=== PATIENT | male | born 2000 | race African-American/Black ===

== ENCOUNTER 2023-11-25 23:51 | Emergency (ER) | payer OTHER ==
[2023-11-26] MEDS ORDERED: KETOROLAC 30 MG/ML INJ ONE (00:21)
[2023-11-26] MEDS ORDERED: NA CHLORIDE 0.9% 1,000 ML ONE (00:21)
[2023-11-26 00:28] LABS: Absolute Lymphocytes (CBC) 0.9 K/uL (0.7-4.9); Hematocrit 42.1 % (39.6-49.0); Lymphocytes % 5.3 % (15.3-44.8); MCV 88.7 fL (80-100); MPV 10.5 fL (7.6-11.3); Platelets 253 thou/uL (152-406); RBC Red Blood Cell Count 4.75 M/uL (4.33-5.43)
[2023-11-26 00:47] LABS: Potassium 3.7 mEq/L (3.5-5.1)
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
[2023-11-26] MEDS ORDERED: CEFTRIAXONE 1000 MG/VIAL ONE (02:34)
[2023-11-26] MEDS ORDERED: AZITHROMYCIN 250 MG TAB ONE (02:34)
[2023-11-26] MEDS ORDERED: HYDROCODONE/APAP 7.5/325 MG TAB ONE (02:35)
[2023-11-26 03:28] VITALS: BP 139/72; TEMP 97.9; O2SAT 99
--- NOTE | 2023-11-26 18:45 | RAD REPORT ---
EXAM DESCRIPTION: EXAM: Hand Right 3 View CLINICAL HISTORY: 23-year-old male with pain. TECHNIQUE: Three views RIGHT hand were obtained in AP, lateral and oblique projections COMPARISON: None. FINDINGS: There is no fracture or dislocation. The joint spaces are preserved. No soft tissue abnorm alities are seen. IMPRESSION: No acute radiographic abnormality. Electronically signed by: Marian Laboy MD 11/26/2023 12:51 AM GOSPEL SINGER Due to temporary technical issues with the PACS/Fluency reporting system, reports are being signed by the in house radiologists without review as a courtesy to insure prompt reporting. The interpreting radiologist is fully responsible for the content of the report.
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
--- NOTE | 2023-11-26 18:59 | RAD REPORT ---
EXAM DESCRIPTION: EXAM: Knee Left 3 View CLINICAL HISTORY: 23-year-old male with pain. TECHNIQUE: Three views LEFT knee were obtained in AP, lateral and oblique projections COMPARISON: None. FINDINGS: There is no fracture or dislocation. The joint spaces are preserved. No soft tissue abnor malities are seen. IMPRESSION: No acute radiographic abnormality. Electronically signed by: Marian Laboy MD 11/26/2023 12:52 AM AIR TWIST OPERATOR Due to temporary technical issues with the PACS/Fluency reporting system, reports are being signed by the in house radiologists without review as a courtesy to insure prompt reporting. The interpreting radiologist is fully responsible for the content of the report.
--- NOTE | 2023-11-26 19:04 | RAD REPORT ---
EXAM DESCRIPTION: EXAM: Knee Right 3 View CLINICAL HISTORY: 23-year-old male with pain. TECHNIQUE: Three views right knee were obtained in AP, lateral and oblique projections COMPARISON: None. FINDINGS: There is no fracture or dislocation. The joint spaces are preserved. No soft tissue abnorm alities are seen. Incidental note is made of a rounded lucency at the level of the distal femoral met aphysis measuring 1.5 cm raising the possibility of nonossifying fibroma, aneurysmal bone cyst and di stal femoral metaphyseal irregularity. IMPRESSION: No acute radiographic abnormality. Electronically signed by: Marian Laboy MD 11/26/2023 12:54 AM ENAMEL SHADER Due to temporary technical issues with the PACS/Fluency reporting system, reports are being signed by the in house radiologists without review as a courtesy to insure prompt reporting. The interpreting radiologist is fully responsible for the content of the report.
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
== END 2023-11-26 03:02 | disposition home or self-care (01) ==
LOC: ER 23:51
DX: Z04.71 Encounter for examination and observation following alleged adult physical abuse (principal); S21.231A Puncture wound without foreign body of right back wall of thorax without penetration into thoracic cavity, initial encounter; S27.321A Contusion of lung, unilateral, initial encounter; M25.562 Pain in left knee; M25.561 Pain in right knee; M79.641 Pain in right hand
CPT/HCPCS: 96365; 96361; 70450; 72125; 71260; 74177; 71045; 73130; 73562 ×2; 96375; 99284; Q9967

== ENCOUNTER 2024-04-01 15:42 | Emergency (ER) | payer OTHER ==
[2024-04-01 16:28] LABS: Absolute Basophils 0.1 K/uL (0-0.5); Absolute Lymphocytes (CBC) 1.8 K/uL (0.7-4.9); Absolute Monocytes 0.6 K/uL (0.1-1.3); Absolute Neutrophil 5.3 K/uL (1.8-8.0); Eosinophils % 0.4 % (0-4.4); Hematocrit 42.7 % (39.6-49.0); Hemoglobin 13.9 g/dL (13.6-17.9); Lymphocytes % 22.8 % (15.3-44.8); MCH 28.2 pg (27.0-35.0); MCHC 32.6 g/dL (32.0-36.0); MCV 86.7 fL (80-100); MPV 9.8 fL (7.6-11.3); Monocytes % 7.6 % (3.3-12.3); Neutrophils % 68.2 % (41.7-73.7); Nucleated Red Blood Cells % 0.2 % (0-0); Platelets 202 thou/uL (152-406); RBC Red Blood Cell Count 4.93 M/uL (4.33-5.43); Red Cell Distribution Width 13.9 % (12.1-15.2)
[2024-04-01 16:32] LABS: PT Prothrombin Time 13.4 SECONDS (9.5-12.5); PTT, Activated Partial Thromb 38.2 SECONDS (24.3-36.9); Protime INR 1.23
[2024-04-01 16:36] LABS: Anion Gap 7.1 mEq/L (5.0-15.0); Potassium 4.1 mEq/L (3.5-5.1)
--- NOTE | 2024-04-01 17:55 | RAD REPORT ---
EXAM DESCRIPTION: CT - Chest Abdomen Pelvis W Cont - 04/01/2024 4:46 pm CLINICAL HISTORY: reports swallowed razor blade COMPARISON: Abdomen 1 View (KUB) dated 04/01/2024 TECHNIQUE: Thin axial CT images of the chest, abdomen, and pelvis, performed following intravenous a dministration of 100mL Isovue-300. Multiplanar reformats were generated and reviewed. All CT scans are performed using dose optimization technique as appropriate and may include automated exposure control or mA/KV adjustment according to patient size. FINDINGS: The lungs are clear.No pleural or pericardial effusion.No intrathoracic adenopathy. Calcif ied small left AP window lymph nodes, may represent sequelae of remote granulomatous infection. The liver, spleen, pancreas, adrenal glands and kidneys are within normal limits. No bowel obstruction, free air, free fluid or abscess. Normal appendix. No pathologic lymphadenopath y in the abdomen or pelvis. No worrisome osseous finding. No radiopaque foreign body. IMPRESSION: No radiopaque foreign body detected. No acute abnormalities in the chest, abdomen, or pelvis.
--- NOTE | 2024-04-01 18:28 | EDPHYS ---
Physician Documentation [facility] Name: Rubio Peace Age: 23 yrs Sex: Male : 2000 Arrival Date: 04/01/2024 Time: 15:42 Bed Treatment Private MD: ED Physician Adria Goodwin HPI: 04/01 15:47 This 23 yrs old Black Male presents to ER via Unassigned with complaints of swallowed rn razor blade. 15:47 The patient or guardian reports the patient has a suspected foreign body, that has been rn ingested. Onset: The symptoms/episode began/occurred 2 hour(s) ago. Current symptoms: none. The patient has not experienced similar symptoms in the past. Patient reports swallowed single flexible razor blade 2 hours prior to arrival. Denies hematemesis or blood in stool. Reports mild upper abdominal pain. Has never done this before.. Historical: - Allergies: 15:49 No Known Allergies; ll1 - PMHx: 15:49 None; ll1 - Immunization history:: Adult Immunizations. - Infectious Disease History:: Denies. - Family history:: not pertinent. - Social history:: Smoking status: Patient denies any tobacco usage or history of. - Hospitalizations: : No recent hospitalization is reported. ROS: 15:47 Constitutional: Negative for fever, chills, and weight loss, Cardiovascular: Negative rn for chest pain, palpitations, and edema, Respiratory: Negative for shortness of breath, cough, wheezing, and pleuritic chest pain, Abdomen/GI: Patient reports mild abdominal cramping MS/Extremity: Negative for injury and deformity, Skin: Negative for injury, rash, and discoloration, Neuro: Negative for headache, weakness, numbness, tingling, and seizure, Exam: 15:47 Constitutional: This is a well developed, well nourished patient who is awake, alert, rn and in no acute distress. Ambulatory into the ER without assistance or difficulty Head/Face: Normocephalic, atraumatic. ENT: No oral injury or laceration noted. No oral bleeding. Cardiovascular: Regular rate and rhythm. No pulse deficits. Respiratory: No increased work of breathing, no retractions or nasal flaring. Abdomen/GI: Soft, non-tender MS/ Extremity: Pulses equal, no cyanosis. Neuro: Awake and alert, GCS 15 Vital Signs: 16:23 BP 131 / 80; Pulse 62; Resp 18; Temp 99; Pulse Ox 100% ; Weight 79.83 kg; Height 5 ft. as6 11 in. ; Pain 6/10; 18:31 BP 140 / 77; Pulse 60; Resp 17; Temp 98; Pulse Ox 99% ; ll1 16:23 Body Mass Index 24.55 (79.83 kg, 180.34 cm) as6 16:23 Pain Scale: Adult as6 MDM: 15:44 Patient medically screened. rn 18:09 ED course: When asked again, patient states he does not know will can a razor blade rn cannot describe it and does not know where he obtained it from. That with negative CT for radiopaque foreign body makes me doubt he actually swallowed razor blade. Patient has no abdominal tenderness, is not in any distress, denies hemoptysis. Will discharge to assisted and told to return if anything worsens. Patient being monitored there for suicidal precautions.. 18:25 Data reviewed: vital signs, nurses notes, lab test result(s), radiologic studies, CT rn scan, plain films, and as a result, I will discharge patient. Independent interpretation of the following test(s) in the Emergency Department X-Ray: My interpretation is X-ray chest and KUB images negative for free air or foreign body.. Counseling: I had a detailed discussion with the patient and/or guardian regarding the historical points, exam findings, and any diagnostic results supporting the discharge/admit diagnosis, lab results, radiology results, the need for outpatient follow up, to return to the emergency department if symptoms worsen or persist or if there are any questions or concerns that arise at home. Special discussion: I discussed with the patient/guardian in detail that at this point there is no indication for admission to the hospital. It is understood, however, that if the symptoms persist or worsen the patient needs to return immediately for re-evaluation. ED course: Patient now reports or admits that he did not swallow a razor blade. Smiles as he says this. CT negative for radiopaque foreign body or complication such as free air or perforation. Will discharge to present with return precautions.. 04/01 15:45 Order name: CBC with Diff; Complete Time: 16:37 rn 04/01 15:45 Order name: Basic Metabolic Panel; Complete Time: 16:37 rn 04/01 15:45 Order name: Protime (+inr); Complete Time: 16:37 rn 04/01 15:45 Order name: Ptt, Activated; Complete Time: 16:37 rn 04/01 15:45 Order name: XRAY Chest (1 view) rn 04/01 15:45 Order name: XRAY KUB rn 04/01 15:45 Order name: CT Chest, Abdomen, Pelvis - W/Contrast; Complete Time: 18:16 rn Administered Medications: No medications were administered Disposition Summary: 04/01/24 18:26 Discharge Ordered Notes: Location: Home rn Problem: new rn Symptoms: have improved rn Condition: Stable rn Diagnosis - Encounter for general adult medical examination without abnormal findings rn Followup: rn - With: Private Physician - When: As needed - Reason: Recheck today's complaints, Re-evaluation by your physician Discharge Instructions: - Discharge Summary Sheet rn - Suicidal Feelings: How to Help Yourself rn Forms: - Medication Reconciliation Form rn - Antibiotic pattern molder - Prescription Opioid Use rn - Patient Portal Instructions rn - Leadership Thank You Letter rn Signatures: Dispatcher [employer] EDMS Adria Goodwin MD MD rn Lewis, Lynsay, RN RN ll1 Harpreet Orourke RN RN as6 Corrections: (The following items were deleted from the chart) 15:45 15:45 Chest Single View+RAD.RAD.BRZ ordered. EDMS EDMS 15:45 15:45 Abdomen 1 View (KUB)+RAD.RAD.BRZ ordered. EDMS EDMS
--- NOTE | 2024-04-01 18:28 | ER ---
Nurse's Notes [facility] Name: Rubio Peace Age: 23 yrs Sex: Male : 2000 Arrival Date: 04/01/2024 Time: 15:42 Bed Treatment Private MD: Diagnosis: Encounter for general adult medical examination without abnormal findings Presentation: 04/01 15:51 Chief complaint: Patient states: Swallowed a razor blade 2 hours [employer]. Coronavirus ll1 screen: Client denies travel out of the [place] in the last 14 days. At this time, the client does not indicate any symptoms associated with coronavirus-19. Ebola Screen: Patient denies travel to an Ebola-affected area in the 21 days before illness onset. Initial Sepsis Screen: Does the patient meet any 2 criteria? No. Patient's initial sepsis screen is negative. Does the patient have a suspected source of infection? No. Patient's initial sepsis screen is negative. Risk Assessment: Do you want to hurt yourself or someone else? Patient reports no desire to harm self or others. Onset of symptoms was April 01, 2024. 15:51 Method Of Arrival: Law Enforcement: [place] [employer] ll1 15:51 Acuity: KAYDEN 3 ll1 Triage Assessment: 15:52 General: Appears in no apparent distress. Behavior is calm, cooperative, appropriate ll1 for age, Reports swallowing a razorblade. Pain: Denies pain. Respiratory: Airway is patent Trachea midline Respiratory effort is even, unlabored, Respiratory pattern is regular, symmetrical. Historical: - Allergies: 15:49 No Known Allergies; ll1 - PMHx: 15:49 None; ll1 - Immunization history:: Adult Immunizations. - Infectious Disease History:: Denies. - Family history:: not pertinent. - Social history:: Smoking status: Patient denies any tobacco usage or history of. - Hospitalizations: : No recent hospitalization is reported. Screenin:43 [facility] ED Fall Risk Assessment (Adult) History of falling in the last 3 months, as6 including since admission No falls in past 3 months (0 pts) Confusion or Disorientation No (0 pts) Intoxicated or Sedated No (0 pts) Impaired Gait No (0 pts) Mobility Assist Device Used No (0 pt) Altered Elimination No (0 pt) Score/Fall Risk Level 0 - 2 = Low Risk Oriented to surroundings, Maintained a safe environment, Educated pt \T\ family on fall prevention, incl call for assistance when getting out of bed, Assessed \T\ reinforced patient's understanding of fall precautions. Abuse screen: Denies threats or abuse. Denies injuries from another. Nutritional screening: No deficits noted. Tuberculosis screening: No symptoms or risk factors identified. Assessment: 16:43 General: Appears in no apparent distress. comfortable, Behavior is calm, cooperative. as6 Pain: Complains of pain in abdomen. GI: Reports lower abdominal pain. 18:31 Reassessment: No changes from previously documented assessment. Patient and/or family ll1 updated on plan of care and expected duration. Pain level reassessed. Patient is alert, oriented x 3, equal unlabored respirations, skin warm/dry/pink. Vital Signs: 16:23 BP 131 / 80; Pulse 62; Resp 18; Temp 99; Pulse Ox 100% ; Weight 79.83 kg; Height 5 ft. as6 11 in. ; Pain 6/10; 18:31 BP 140 / 77; Pulse 60; Resp 17; Temp 98; Pulse Ox 99% ; ll1 16:23 Body Mass Index 24.55 (79.83 kg, 180.34 cm) as6 16:23 Pain Scale: Adult as6 ED Course: 15:44 Patient arrived in ED. rn 15:44 Adria Goodwin MD is Attending Physician. rn 15:49 Arm band placed on Patient placed in an exam room, on a stretcher. ll1 15:51 Triage completed. ll1 16:18 Harpreet Orourke, KENN is Primary Nurse. as6 16:23 CBC with Diff Sent. as6 16:23 Basic Metabolic Panel Sent. as6 16:23 Ptt, Activated Sent. as6 16:23 Protime (+inr) Sent. as6 16:23 Inserted saline lock: 20 gauge in left antecubital area, using aseptic technique. Blood as6 collected. 16:25 XRAY Chest (1 view) In Process Unspecified. EDMS 16:25 XRAY KUB In Process Unspecified. EDMS 16:43 Bed in low position. Call light in reach. guards at bedside. as6 16:47 CT Chest, Abdomen, Pelvis - W/Contrast In Process Unspecified. EDMS 18:31 No provider procedures requiring assistance completed. IV discontinued, intact, ll1 bleeding controlled, No redness/swelling at site. Pressure dressing applied. 18:37 Provided Education on: return as needed. ll1 Administered Medications: No medications were administered Medication: 16:44 VIS not applicable for this client. as6 Outcome: 18:26 Discharge ordered by . rn 18:36 Discharged to Law Enforcement ll 18:36 Condition: stable 18:36 Discharge instructions given to patient, Instructed on discharge instructions, follow up and referral plans. Demonstrated understanding of instructions, follow-up care, 18:37 Patient left the ED. ll1 Signatures: Dispatcher [employer] EDMS Adria Goodwin MD MD rn Lewis, Lynsay, RN RN ll1 Harpreet Orourke RN RN as6
--- NOTE | 2024-04-01 18:48 | RAD REPORT ---
EXAM DESCRIPTION: RADChest Single View04/01/2024 4:23 pm CLINICAL HISTORY: reports swallowed razor blade COMPARISON: Chest Single View dated 11/26/2023 TECHNIQUE: Portable AP view of the chest. FINDINGS: The lungs are clear. No pneumothorax or effusion, although noninclusion of the tip of the apices limits evaluation. The cardiomediastinal contours are unremarkable. IMPRESSION: No acute cardiopulmonary process.
--- NOTE | 2024-04-01 19:06 | RAD REPORT ---
EXAM DESCRIPTION: RAD - Abdomen 1 View (KUB) - 04/01/2024 4:23 pm CLINICAL HISTORY: reports swallowed razor blade COMPARISON: No comparisons TECHNIQUE: Single AP view of the abdomen. FINDINGS: Nonobstructive bowel gas pattern. No air-fluid levels, free air, or pneumatosis. No suspic ious calcifications. No significant bony abnormality. No radiopaque foreign body. Numerous external metallic radiodensiti es are present, somewhat limiting evaluation. IMPRESSION: No radiopaque foreign body. Nonobstructive bowel gas pattern.
[2024-04-01 19:30] VITALS: BP 140/77; TEMP 98; O2SAT 99
== END 2024-04-01 18:37 | disposition home or self-care (01) ==
LOC: ER 15:42
DX: Z71.1 Person with feared health complaint in whom no diagnosis is made (principal)
CPT/HCPCS: 85025; 80048; 36415; 85610; 85730; 71260; 74177; 74018; 71045; 99284; Q9967